=== PATIENT | female | born 1965 | race Caucasian/White ===

== ENCOUNTER 2021-02-16 09:09 | Emergency (ER) | payer MEDICAID ==
[~2021-02-16] VITALS: Ht 162.6 cm; Wt 79.5 kg
[2021-02-16] MEDS ORDERED: KETOROLAC 30MG/ML VIAL IM ONE (09:45)
[2021-02-16] MEDS ORDERED: IBUP-2029 MT (11:56)
[2021-02-16 12:13] VITALS: BP 159/89
== END 2021-02-16 12:13 | disposition home or self-care (01) ==
LOC: ER 09:24
DX: S82.142A Displaced bicondylar fracture of left tibia, initial encounter for closed fracture (principal); I10 Essential (primary) hypertension; Z98.890 Other specified postprocedural states; W18.30XA Fall on same level, unspecified, initial encounter; Y93.89 Activity, other specified; Y92.89 Other specified places as the place of occurrence of the external cause; Y99.8 Other external cause status
CPT/HCPCS: 29505; 73562; 96372; 99283; J1885; Z7610

== ENCOUNTER 2022-11-16 12:29 | Emergency (ER) | payer MEDICAID ==
[~2022-11-16] VITALS: Ht 165.1 cm; Wt 81.0 kg
[~2022-11-16 12:29] MED LIST: IBUP-2029 MT
[2022-11-16] MEDS ORDERED: ACETAMINOPHEN 325MG TABLET PO ONE (17:15)
[2022-11-16] MEDS ORDERED: IBUPROFEN 400MG TABLET PO ONE (17:15)
[2022-11-16] MEDS ORDERED: IBUP-2028 MT (18:44)
[2022-11-16 19:00] VITALS: BP 180/92
== END 2022-11-16 19:27 | disposition home or self-care (01) ==
LOC: ER 12:29
DX: S82.091A Other fracture of right patella, initial encounter for closed fracture (principal); I10 Essential (primary) hypertension; W01.0XXA Fall on same level from slipping, tripping and stumbling without subsequent striking against object, initial encounter; Y93.9 Activity, unspecified; Y92.9 Unspecified place or not applicable; Z98.890 Other specified postprocedural states
CPT/HCPCS: 73562; 99283; L1830